=== PATIENT | female | born 1995 | race African-American/Black ===

== ENCOUNTER 2021-08-07 21:20 | Emergency (ER) | payer OTHER ==
[2021-08-07 22:04] VITALS: BP 164/84; PULSE 64; RESP 19; TEMP 98.1
[2021-08-07 22:56] LABS: HCT 40.7 % (34.0-46.0); HGB 13.4 gm/dL (11.4-16.0); MCH 30.1 pg (25.0-35.0); MCHC 32.9 g/dL (31.0-37.0); MCV 91.6 fL (80.0-100.0); Mean Platelet Volume 7.3; Platelet Count 261 k/uL (150-450); RBC 4.45 m/uL (3.80-5.40); RDW 13.4 % (11.5-15.5); WBC 10.4 k/uL (3.8-10.6)
--- NOTE | 2021-08-07 23:33 | US ---
EXAMINATION TYPE: Transabdominal DATE OF EXAM: 08/07/2021 11:21 PM COMPARISON: NONE CLINICAL HISTORY: vaginal bleeding. Patient is 1 week late for her period; patient states she had a p ositive test 2 days ago. Patient states she woke up today with vaginal bleeding and crampin g EXAM PERFORMED: Transvaginal (TV) and Transabdominal (TA) EXAM MEASUREMENTS: GESTATIONAL AGE / DATING Physician Established: Not yet established Dates by LMP: 07/03/21 (5 weeks/0 days) EDC: 04/09/22 Dates by First Scan: No previous this is first scan Dates by Current Scan for: No IUP seen at this time MATERNAL ANATOMY Uterus: 6.0 x 3.4 x 4.8 cm Endometrium: 1.03 cm Right Ovary: 3.1 x 2.2 x 2.0 cm Left Ovary: 2.9 x 2.3 x 2.1 cm Post CDS / Adnexa: wnl Presence of free fluid: no Presence of corpus luteal cyst: no Presence of subchorionic bleed: no No IUP seen Date of LMP: 07/03/21 Beta HcG (if available): Not available at this time IMPRESSION: Uterus is empty. No adnexal mass or free fluid.
[2021-08-07 23:51] LABS: ALT 13 U/L (4-34); AST 24 U/L (14-36); African American GFR (CKD) >90 (>60 ml/min/1.73 sqM); Albumin 4.5 g/dL (3.5-5.0); Alkaline Phosphatase 52 U/L (38-126); Anion Gap 7 mmol/L; Blood Urea Nitrogen 9 mg/dL (7-17); Calcium 9.2 mg/dL (8.4-10.2); Carbon Dioxide 27 mmol/L (22-30); Chloride 104 mmol/L (98-107); Glucose 87 mg/dL (74-99); Non-African American GFR(CKD) >90 (>60 ml/min/1.73 sqM); Sodium 138 mmol/L (137-145); Total Protein 7.6 g/dL (6.3-8.2)
[2021-08-08 00:09] LABS: HCG,Quantitative Serum <2.4 mIU/mL
--- NOTE | 2021-08-08 01:05 | ED ---
General Adult HPI - General Chief complaint: Vaginal Bleeding Stated complaint: Possible Miscarriage Time Seen by Provider: 08/08/21 00:50 Source: patient, RN notes reviewed Mode of arrival: ambulatory - History of Present Illness Initial comments: 26-year-old female presents to the emergency department for evaluation of possible . Patient states her menstrual period was a week late so she took test which was positive. States she then developed vaginal ble eding and lower abdominal cramping consistent with normal menstruation earlier today. States she was then concerned about miscarriage. Patient states she typically has a very regular menstrual cycle. Denies fever, chills, headache, chest pain, shortness of breath, nausea, vomiting, diarrhea, dysuria, or hematuria. LMP 07/03/21. - Related Data Allergies Allergy/AdvReac Type Severity Reaction Status Date / Time No Known Allergies Allergy Verified 08/07/21 22:04 Review of Systems ROS Statement: Those systems with pertinent positive or pertinent negative responses have been documented in the HPI. ROS Other: All systems not noted in ROS Statement are negative. Past Medical History Additional Past Medical History / Comment(s): heart murmur History of Any Multi-Drug Resistant Organisms: None Reported Past Surgical History: No Surgical Hx Reported Past Psychological History: No Psychological Hx Reported Smoking Status: Current every day smoker Past Alcohol Use History: Occasional Past Drug Use History: Marijuana General Exam Limitations: no limitations (Well-developed, well-nourished female in no acute distress. Initial temperature 98.1, pulse 64, respirations 19, blood pressure 164/84, pulse ox 98% on room air.) General appearance: alert, in no apparent distress Respiratory exam: Present: normal lung sounds bilaterally. Absent: respiratory distress, wheezes, rales, rhonchi, stridor Cardiovascular Exam: Present: regular rate, normal rhythm, normal heart sounds. Absent: systolic murmur, diastolic murmur, rubs, gallop, clicks GI/Abdominal exam: Present: soft, normal bowel sounds. Absent: distended, tenderness, guarding, rebound, rigid Back exam: Present: normal inspection. Absent: CVA tenderness (R), CVA tenderness (L) Neurological exam: Present: alert, oriented X3, CN II-XII intact Psychiatric exam: Present: normal affect, normal mood Skin exam: Present: warm, dry, intact, normal color. Absent: rash Course Vital Signs 08/07/21 21:58 Temperature 98.1 F Pulse Rate 64 Respiratory 19 Rate Blood Pressure 164/84 O2 Sat by Pulse 98 Oximetry - Reevaluation(s) Reevaluation #1: 08/08/21 00:35 Discussed results from ED workup. Explained that laboratory studies show an nondetectable hCG level indicating that patient is not . Also discussed results from ultrasound showing no IUP. We did talk about her vaginal bleeding most likely being her normal regular menstrual. She did show me her "positive" test from home, which was not convincingly clearly indicative of . Encouraged to use contraception to prevent . Will be discharged home to follow up as needed. Medical Decision Making - Medical Decision Making 26-year-old female with no significant past medical history, LMP 07/03/2021, presents to the emergency department for evaluation of possible . Upon exam, patient is well-appearing and in no acute distress. Abdomen is soft and nontender. Vital signs are stable. Laboratory studies are unremarkable. HCG is undetectable. Ultrasound shows no IUP. Results were discussed with patient. Vaginal bleeding is most likely the result of normal regular menstrual bleeding. She will be discharged home to follow up with PCP or DAY HABILITATION SPECIALIST as needed. Return parameters were discussed in detail. Patient verbalizes understanding and agrees with this plan. Attending: Cristina. - Lab Data Result diagrams: 08/07/21 22:45 08/07/21 22:45 Lab Results 08/07/21 08/07/21 08/07/21 Range/Units 22:45 22:45 22:45 WBC 10.4 (3.8-10.6) k/uL RBC 4.45 (3.80-5.40) m/uL Hgb 13.4 (11.4-16.0) gm/dL Hct 40.7 (34.0-46.0) % MCV 91.6 (80.0-100.0) fL MCH 30.1 (25.0-35.0) pg MCHC 32.9 (31.0-37.0) g/dL RDW 13.4 (11.5-15.5) % Plt Count 261 (150-450) k/uL MPV 7.3 Sodium 138 (137-145) mmol/L Potassium 4.0 (3.5-5.1) mmol/L Chloride 104 (98-107) mmol/L Carbon Dioxide 27 (22-30) mmol/L Anion Gap 7 mmol/L BUN 9 (7-17) mg/dL Creatinine 0.82 (0.52-1.04) mg/dL Est GFR (CKD-EPI)AfAm >90 (>60 ml/min/1.73 sqM) Est GFR (CKD-EPI)NonAf >90 (>60 ml/min/1.73 sqM) Glucose 87 (74-99) mg/dL Calcium 9.2 (8.4-10.2) mg/dL Total Bilirubin 1.0 (0.2-1.3) mg/dL AST 24 (14-36) U/L ALT 13 (4-34) U/L Alkaline Phosphatase 52 (38-126) U/L Total Protein 7.6 (6.3-8.2) g/dL Albumin 4.5 (3.5-5.0) g/dL HCG, Quant <2.4 mIU/mL Blood Type O Negative Blood Type Recheck No Previous Record Bld Type Recheck Status CABO Indicated Antibody Screen NEGATIVE Spec Expiration Date 08/10/20210 - Radiology Data Radiology results: report reviewed, image reviewed Transabdominal and transvaginal ultrasound was obtained. Report was reviewed in its entirety. Impression per Dr. Crain is empty uterus. No adnexal mass or free fluid. Disposition Clinical Impression: Vaginal bleeding Disposition: HOME SELF-CARE Condition: Stable Instructions (If sedation given, give patient instructions): Normal Exam (ED) Additional Instructions: Follow up with you PCP or OB-Power Plant Engineer for a recheck as needed. Your hCG ( hormone level) was negative. Return to the emergency department with any new, worsening, or concerning symptoms. Is patient prescribed a controlled substance at d/c from ED?: No Referrals: None,Stated [Primary Care Provider] - 1-2 days Time of Disposition: 01:05
== END 2021-08-08 00:55 | disposition home or self-care (01) ==
LOC: EC 21:20
DX: N93.9 Abnormal uterine and vaginal bleeding, unspecified (principal); F17.200 Nicotine dependence, unspecified, uncomplicated
CPT/HCPCS: 36415; 76801; 76817; 80053; 84702; 85027; 86850; 86900; 86901; 99284

== ENCOUNTER 2023-08-02 10:53 | Inpatient (IN) | payer OTHER ==
[2023-08-02 11:43] LABS: Appearance,Urine Clear (Clear); Bilirubin,Urine Negative (Negative); Blood,Urine Moderate (Negative); Color,Urine Light Yellow; Glucose,Urine (UA) Negative (Negative); Ketones,Urine Trace (Negative); Leukocyte Esterase,Urine Negative (Negative); Nitrite,Urine Negative (Negative); Protein,Urine Trace (Negative); RBC,Urine 4 /hpf (0-5); Specific Gravity,Urine 1.008 (1.001-1.035); Squamous Epithelial Cell,Urine 1 /hpf (0-4); Urobilinogen,Urine <2.0 mg/dL (<2.0); WBC,Urine 2 /hpf (0-5)
[2023-08-02 11:51] LABS: Amphetamine Screen,Urine Detected (NotDetected); Barbiturate Screen,Urine Not Detected (NotDetected); Benzodiazepines Screen,Urine Not Detected (NotDetected); Cocaine Screen,Urine Detected (NotDetected); Methadone Screen, Urine Not Detected (NotDetected); Opiate Screen,Urine Not Detected (NotDetected); Oxycodone Screen, Urine Not Detected (NotDetected); Phencyclidine Screen,Urine Not Detected (NotDetected); Tricyclic Antidepressant,Urine Not Detected (NotDetected); Urn Cannabinoid Scrn Detected (NotDetected)
[2023-08-02 12:10] LABS: HCT 29.7 % (34.0-46.0); HGB 9.6 gm/dL (11.4-16.0); MCH 29.7 pg (25.0-35.0); MCHC 32.5 g/dL (31.0-37.0); MCV 91.3 fL (80.0-100.0); Mean Platelet Volume 10.1; Platelet Count 195 k/uL (150-450); RBC 3.25 m/uL (3.80-5.40); RDW 14.7 % (11.5-15.5); WBC 49.4 k/uL (3.8-10.6)
--- NOTE | 2023-08-02 12:29 | US ---
EXAMINATION TYPE: US OB >= 14 wk fetus DATE OF EXAM: 08/02/2023 COMPARISON: None CLINICAL INDICATION: Female, 28 years old with history of minimal care, need full ultrasound please; TECHNIQUE: Transabdominal (TA) GESTATIONAL AGE / DATING Physician Established: (39 weeks/0 days) EDC: 08/09/2023 Dates by LMP: LMP unknown Dates by First Scan: No previous with this Dates by Current Scan: (35 weeks/5 days) EDC: 09/01/2023 SURVEY IUP: Single PLACENTA: Fundal/Posterior - limited due to age and position PREVIA: No Previa REE: 14.0 cm Normal CERVICAL LENGTH (transabdominal: norm > 3.0cm): 3.2 cm(limited visualization transabdominally - no tr ansvaginal per Dr. Schaffer) BIOMETRY PRESENTATION: Vertex LIE: Longitudinal BPD: 8.7 cm 35 weeks / 1 days HC: 32.1 cm 36 weeks / 2 days AC: 30.4 cm 34 weeks / 3 days FL: 7.1 cm 36 weeks / 4 days ESTIMATED WEIGHT IN GRAMS: 2614 grams ESTIMATED WEIGHT IN LBS/OZ: 5 lbs. 12 oz. WEIGHT PERCENTAGE BASED ON ESTABLISHED DATES: 3% HC/AC: 1.06 Normal FL/AC: 23% Normal HEART RATE: 134 bpm RHYTHM: Normal IMPRESSION: Single live intrauterine gestation ultrasound age 35 weeks 5 days.
[2023-08-02] MEDS: LACTATED RINGERS 1,000 ML IV SCH ×2 (13:30→19:14)
--- NOTE | 2023-08-02 13:46 | P.HPOB ---
History of Present Illness H&P Date: 08/02/23 Chief Complaint: Cramping, contractions Ms. Calhoun is a 28 year old at 38 weeks and 0 days with stated LMP of 11/27/2022 and EDC of 08/16/2023 by 20 week bedside ultrasound who presents today with a history of painful cramping and contractions. She reports good m ovement and denies leaking of fluid. She had scant in [place], [place]. She has noted a pink tinge to her vaginal discharge. The has been complicated by scant care and illegal drug use. Today, the patient tests positive for cocaine, amphetamines, and marijuana. The patient states that she has had a few care visits and ultrasounds. She recently moved to [place] after her fiancee May 27 from a drug overdose. The patient is Rh negative and states she never received rhogam. She did have her TDap vaccine a few weeks ago, she states. Of note, the patient is noted to have a significantly elevated white count at 49 today. Obstetric history: 1 SAB, 1 VTP work-up [facility] in [place]: Blood type O negative, antibody negative, syphilis was nonreactive (03/29), rubella was equivocal (/), HBsAg negative (/), HIV negative (/). Past medical history: patient denies Past surgical history: patient denies Medications: vitamins Social history: smokes 2 cigarettes daily, uses marijuana, denies any other illicit drug use Past Medical History Additional Past Medical History / Comment(s): heart murmur History of Any Multi-Drug Resistant Organisms: None Reported Past Surgical History: No Surgical Hx Reported Smoking Status: Current every day smoker Medications and Allergies Home Medications Medication Instructions Recorded Confirmed Type Vit No.179/Iron/Folic 1 tab PO DAILY 08/02/23 08/02/23 History [ Tablet] Allergies Allergy/AdvReac Type Severity Reaction Status Date / Time No Known Allergies Allergy Verified 08/02/23 11:07 Exam Intake and Output 08/01/23 08/02/23 08/02/23 22:59 06:59 14:59 Other: Weight 77.927 kg Focused physical exam is performed. This is a healthy-appearing in no apparent distress. Breathing is non-labored. Abdomen is gravid and non-tender. Cervical exam per labor and delivery nurse is 3.5 cm, 80% effacement, -3 station. AROM is undertaken with clear fluid noted. Extremities non-tender and non-edematous. heart tones are 130s/moderate variability/+acceler ations/intermittent late decelerations. Tocometer is graphing contractions every 3-8 minutes. Results Result Diagrams: 08/02/23 11:45 08/02/23 11:45 Abnormal Lab Results - Last 24 Hours (Table) 08/02/23 08/02/23 Range/Units 11:17 11:45 WBC 49.4 H (3.8-10.6) k/uL RBC 3.25 L (3.80-5.40) m/uL Hgb 9.6 L (11.4-16.0) gm/dL Hct 29.7 L (34.0-46.0) % Urine Protein Trace H (Negative) Urine Ketones Trace H (Negative) Urine Blood Moderate H (Negative) Ur Amphetamines Screen Detected H (NotDetected) Urine Cocaine Screen Detected H (NotDetected) U Marijuana (THC) Screen Detected H (NotDetected) Assessment and Plan Assessment: 28 year old at 38 weeks and 0 days gestation by 20 week bedside ultrasound with scant care and history of illicit drug use in early labor with intermittent late decelerations Plan: 1. Early labor. 2. Intermittent late decelerations. Will proceed with augmentation of labor with amniotomy and pitocin. 3. Leukocytosis of 49. Afebrile, VSS. Will start IV amp/gent for presumed chorioamnionitis. 4. Pain control. Epidural prn. 5. Monitoring. Continuous EFM, tocometer. Close monitoring of patient. 6. Diet NPO Time with Patient: Greater than 30 (45 minutes)
[2023-08-02 13:48] LABS: Band Neutrophils % 13 %; Lymphocytes # (M) 1.98 k/uL (1.0-4.8); Metamyelocytes # (M) 0.99 k/uL (0); Metamyelocytes % 2 %; Monocytes # (M) 3.95 k/uL (0-1.0); Neutrophils % (M) 74 %; Nucleated Red Blood Cells 0 /100 WBC (0-0); Total Cells Counted 200
[2023-08-02 13:49] LABS: RBC Morphology Normal; Toxic Granulation Present
[2023-08-02] MEDS ORDERED: miSOPROStoL 200 MCG TAB PO PRN ×2 (14:00→16:56)
[2023-08-02] MEDS ORDERED: TERBUTALINE 1 MG/ML VIAL SQ PRN (14:00)
[2023-08-02] MEDS ORDERED: TRANEXAMIC 1,000 MG/100ML-NACL 1,000 MG in EMPTY BAG 1 BAG IV PRN ×2 (14:00→16:56)
[2023-08-02] MEDS ORDERED: CARBOPROST TROMETHAMINE 250 MCG/ML 1 ML AMP IM PRN ×2 (14:00→16:56)
[2023-08-02] MEDS ORDERED: LIDOCAINE 0.5% (PF) 5 MG/ML (50 ML SDV) SQ PRN (14:00)
[2023-08-02] MEDS ORDERED: METHYLERGONOVINE 0.2 MG/ML 1 ML AMP IM PRN ×2 (14:00→16:56)
[2023-08-02] MEDS ORDERED: OXYTOCIN 10 UNIT/ML 1 ML VIAL IM PRN ×2 (14:00→16:56)
[2023-08-02] MEDS: AMPICILLIN 2,000 MG in SODIUM CHLORIDE 0.9% 100 ML IVPB SCH (14:26)
[2023-08-02] MEDS: OXYTOCIN 30 UNITS/500 ML NS 30 UNIT in SALINE 1 500ML.BAG IV SCH (14:56)
[2023-08-02] MEDS: GENTAMICIN 300 MG in SODIUM CHLORIDE 0.9% 100 ML IVPB SCH (15:34)
[2023-08-02] MEDS: NALBUPHINE 10 MG/ML (10 ML MDV) IV PRN (16:10)
[2023-08-02] MEDS: CITRIC ACID-SODIUM CITRATE 15 ML CUP PO ONE (17:05)
[2023-08-02] MEDS ORDERED: MORPHINE SULFATE (PF) 0.3 MG/0.3 ML SYR ONE (17:11)
[2023-08-02] MEDS ORDERED: ONDANSETRON 4 MG/2 ML VIAL ONE (17:11)
[2023-08-02] MEDS ORDERED: KETOROLAC 15 MG/ML 1 ML VIAL ONE (17:11)
[2023-08-02] MEDS ORDERED: OXYTOCIN 30 UNITS/500 ML NS BAG IV ONE (17:11)
[2023-08-02] MEDS ORDERED: ePHEDrine 50 MG/ML 1 ML VIAL ONE (17:11)
[2023-08-02 18:06] LABS: Hepatitis B Surface Antigen Nonreactive (Nonreactive)
[2023-08-02] MEDS ORDERED: METOCLOPRAMIDE 5 MG/ML 2 ML VIAL IVP PRN (19:01)
[2023-08-02] MEDS ORDERED: diphenhydrAMINE 50 MG/ML 1 ML VIAL IVP PRN (19:01)
[2023-08-02] MEDS ORDERED: SIMETHICONE 80 MG CHEWABLE PO PRN (19:01)
[2023-08-02] MEDS ORDERED: NALOXONE 0.4 MG/ML 1 ML VIAL IV PRN (19:01)
[2023-08-02] MEDS ORDERED: diphenhydrAMINE 50 MG CAP PO PRN (19:01)
[2023-08-02] MEDS ORDERED: ZOLPIDEM 5 MG TAB PO PRN (19:01)
[2023-08-02] MEDS ORDERED: diphenhydrAMINE 25 MG CAP PO PRN (19:01)
[2023-08-02] MEDS ORDERED: ONDANSETRON 4 MG/2 ML VIAL IVP PRN (19:01)
--- NOTE | 2023-08-02 19:01 | P.OP ---
Date of Procedure: 08/02/23 Preoperative Diagnosis: 1. Term IUP at 38 weeks 2. Chorioamnionitis 3. Scant care 4. Persistent Category II FHTs remote from delivery 5. Thick Meconium Stained Fluid Postoperative Diagnosis: Same Procedure(s) Performed: Primary Lower Transverse Section Implants: None Anesthesia: spinal Surgeon: Rowena Schaffer Estimated Blood Loss (ml): 400 IV fluids (ml): 1,000 Urine output (ml): 200 (clear yellow) Pathology: other (placenta) Condition: stable Disposition: floor Indications for Procedure: Ms. Calhoun is a 28 year old at 38 weeks gestation by 20 week bedside ultrasound and very scant care who presented to labor and delivery with complaints of contractions. While in triage the fetus had several late decelerations. The patient was also noted to have a leukocytosis of 49. Chorioamnionitis was diagnosed, the patient was admitted for labor augmentation with amniotomy and Pitocin per protocol. IV ampicillin and gentamicin were given for chorioamnionitis treatment. The patient progressed to 7 cm, however the fetus was having persistent category 2 heart tones. Category II FHT were managed following the algorithm including initiation of position changes and fluid boluses. With the persistent presence of recurrent and deep late decelerations, a patient-centered huddle was held and the need for an expedited deliver was discussed with the patient. It is our clinical recommendation to proceed with the delivery and after questions were answered to the patient agrees to proceed with the recommended plan. The risks, benefits, and alternatives to section were discussed with the patient including risk of bleeding, infection, damage to surrounding structures including bladder/bowels/ureters, and post-operative VTE. The patient understands these risks and desires to proceed with section. Operative Findings: Normal appearing uterus, bilateral fallopian tubes, and ovaries. Thick meconium noted. Fetus was cephalic in right occiput posterior position. Viable male infant delivered, weighing 6 pounds and 1 ounce (2755 grams), with Apgars of 8/9. Description of Procedure: The patient was taken to the operating room where spinal anesthesia was found to be adequate. Two grams Ancef were given for infection prophylaxis. Vaginal prep was performed prior to the surgery. She was prepared and draped in the dorsal supine position with a leftward tilt. A Pfannenstiel skin incision was made with the scalpel. The incision was carried down to the fascia with a bovie. The fascia was incised and extended laterally with Malik scissors. The superior aspect of the fascia was grasped with Abdon clamps. The underlying rectus muscle was dissected off sharply with Malik scissors. In a similar fashion, the inferior aspect of the fascia was elevated with Abdon clamps and the rectus muscle and pyramidalis were dissected off. Excellent hemostasis was achieved with the bovie. The rectus muscle was in the midline down to the level of the pubic symphysis. Pre-peritoneal fatty tissue was bluntly dissected to expose the peritoneum. The peritoneum was found to be free of adherent bowel and entered sharply with Malik scissors. The peritoneal incision was extended superiorly and inferiorly to the bladder reflection with good visualization of the bladder. The bladder blade was inserted and vesicouterine peritoneum was identified. Intraabdominal survey revealed scant, clear peritoneal fluid and the thinned-out lower uterine segment. The vesicouterine peritoneum was opened with scissors and the bladder flap was developed. The bladder blade was repositioned to keep the bladder out of the operative field. The lower uterine segment was incised with a scalpel. The amniotic sac was ruptured with an Allis clamp and thick meconium was noted. The uterine incision was extended bluntly with lateral and upward traction. The fetus was in right occiput posterior position. The head was elevated out of the pelvis with special attention paid to avoid using the uterine incision as a fulcrum. Gentle fundal pressure was applied once the head was brought into the incision. The was delivered with no difficulty. The mouth and nose were suctioned with a bulb. The cord was clamped and cut. Infant was noted to be spontaneously crying. The infant was handed off to the workers compensation claims examiner. IV oxytocin was initiated to facilitate uterine contractions. The placenta was delivered intact with manual massage of uterine fundus. The uterus was then exteriorized and the inside of the uterus was gently wiped with a lap sponge to assure complete removal of placental membranes. The uterine incision was closed with a 0-Polysorb suture in a running locked fashion. A second im bricating layer of 0-Polysorb was placed along the incision. The ovaries and tubes were found to be normal. Additional figure of eight sutures were placed along the hysterotomy to facilitate hemostasis. The uterus, tubes, and ovaries were then gently returned to the abdominal cavity. The blood clots and fluid were wiped out of the abdomen and pelvis with moist laparotomy sponges. The pelvis was copiously suction irrigated.The uterine incision was reinspected and excellent hemostasis was noted. The fascial layer was closed with a 0-Vicryl suture. The subcutaneous tissue was reapproximated with 2-0 Plain Gut. The skin was closed with 4-0 Monocryl in a subcuticular fashion. The patient tolerated the procedure well. All the counts were correct times two. The patient was taken to the recovery room in a stable condition.
[2023-08-02 19:27] LABS: HIV 2 AB Non-Reactive (Non-Reactive); HIV AB P24 Non-Reactive (Non-Reactive); HIV P24 AG Non-Reactive (Non-Reactive)
[2023-08-02] MEDS: diphenhydrAMINE 50 MG/ML 1 ML VIAL IVP PRN (19:30)
[2023-08-02] MEDS: ACETAMINOPHEN TAB 500 MG TAB PO SCH (21:57)
[2023-08-02] MEDS: SENNOSIDES-DOCUSATE SODIUM 1 EACH TAB PO SCH (21:58)
[2023-08-03] MEDS: KETOROLAC 15 MG/ML 1 ML VIAL IVP SCH (01:01)
[2023-08-03] MEDS: IBUPROFEN 600 MG TAB PO SCH (02:39)
[2023-08-03] MEDS: CLINDAMYCIN 900 MG in DEXTROSE 5% IN WATER 50 ML IVPB ONE (02:40)
[2023-08-03] MEDS: LACTATED RINGERS 1,000 ML IV SCH (04:35)
[2023-08-03] MEDS: Rhogam IMMUNE GLOBULIN 1,500 UNIT/1 ML IM ONE (05:53)
[2023-08-03 06:09] LABS: HCT 22.8 % (34.0-46.0); MCH 30.2 pg (25.0-35.0); MCHC 33.3 g/dL (31.0-37.0); MCV 90.7 fL (80.0-100.0); Mean Platelet Volume 10.4; Platelet Count 179 k/uL (150-450); RBC 2.51 m/uL (3.80-5.40); RDW 14.9 % (11.5-15.5); WBC 30.7 k/uL (3.8-10.6)
[2023-08-03 06:48] LABS: HGB 7.6 gm/dL (11.4-16.0)
--- NOTE | 2023-08-03 07:04 | P.PNOBGPC ---
Subjective - Subjective Principal diagnosis: s/p primary section Interval history: The patient is doing well this morning and had no acute events overnight. She has no complaints this morning. Awaiting void after nunez was removed. has not yet passed flatus. She reports minimal lochia, ambulating, and eating/drinking without nausea or vomiting. She is her without difficulty. She denies chest pain, shortness of breathing, fevers, or chills overnight. She denies pain or swelling in the legs. Patient reports: Reports appetite normal, Reports voiding normally, Reports pain well controlled, Reports ambulating normally : in NICU, other ([facility]) Objective - Vital Signs Latest vital signs: Vital Signs Temp Pulse Resp BP Pulse Ox 08/03/23 04:00 97.8 F 70 16 100/59 98 08/03/23 00:00 71 18 102/61 98 08/02/23 20:07 65 18 129/60 100 08/02/23 19:52 63 16 135/67 100 08/02/23 19:37 66 18 137/81 100 08/02/23 19:22 67 18 134/65 100 08/02/23 19:07 57 L 18 119/68 100 08/02/23 18:52 62 17 127/64 100 08/02/23 18:37 59 L 17 127/75 100 08/02/23 18:22 70 17 121/72 100 08/02/23 18:07 97.4 F L 63 17 111/56 100 08/02/23 16:26 97.7 F 94 17 115/64 100 08/02/23 13:29 97.7 F 94 17 115/64 100 Intake and Output 08/02/23 08/03/23 08/03/23 22:59 06:59 14:59 Intake Total 1606.333 400 Output Total 850 1600 Balance 756.333 -1200 Intake: IV 1000 Intake, IV Titration 6.333 Amount Oxytocin 30 Units/500 ml 6.333 Ns 30 unit In Saline 1 500ml.bag @ Per Protocol IV .Q0M [facility] Rx#:[id number] Oral 600 400 Output: Urine 450 1600 Uretheral (Nunez) 1600 Estimated Blood Loss 400 Other: Voiding Method Indwelling Catheter - Exam Extremities: Present: normal Abdomen: Present: normal appearance, soft Incision: Present: normal, dry, dressed Uterus: Present: normal, firm - Labs Labs: Abnormal Lab Results - Last 24 Hours (Table) 08/02/23 08/02/23 08/02/23 Range/Units 11:17 11:45 11:45 WBC 49.4 H (3.8-10.6) k/uL RBC 3.25 L (3.80-5.40) m/uL Hgb 9.6 L (11.4-16.0) gm/dL Hct 29.7 L (34.0-46.0) % Neutrophils # (Manual) 42.90 H (1.3-7.7) k/uL Monocytes # (Manual) 3.95 H (0-1.0) k/uL Metamyelocytes # (Man) 0.99 H (0) k/uL Urine Protein Trace H (Negative) Urine Ketones Trace H (Negative) Urine Blood Moderate H (Negative) Ur Amphetamines Screen Detected H (NotDetected) Urine Cocaine Screen Detected H (NotDetected) U Marijuana (THC) Screen Detected H (NotDetected) Rubella IgG Antibody 21.70 H (0.00-9.00) IU/mL 08/03/23 Range/Units 05:34 WBC 30.7 H (3.8-10.6) k/uL RBC 2.51 L (3.80-5.40) m/uL Hgb 7.6 L D (11.4-16.0) gm/dL Hct 22.8 L (34.0-46.0) % Neutrophils # (Manual) (1.3-7.7) k/uL Monocytes # (Manual) (0-1.0) k/uL Metamyelocytes # (Man) (0) k/uL Urine Protein (Negative) Urine Ketones (Negative) Urine Blood (Negative) Ur Amphetamines Screen (NotDetected) Urine Cocaine Screen (NotDetected) U Marijuana (THC) Screen (NotDetected) Rubella IgG Antibody (0.00-9.00) IU/mL Assessment and Plan Assessment: 28 year old POD#1 s/p primary section 2/2 non-reassuring heart tones remote from delivery Plan: 1. Post-operative. Pt doing well, awaiting void s/p nunez. Not yet passing flatus. Continue to monitor. Ambulation encouraged. 2. Viable male . [facility], in nursery. 3. Chorioamnionitis. s/p IV Amp/Gent in labor, s/p 1 dose IV Clidamycin. WBC 49 yesterday > 30 this AM > repeat CBC tomorrow. Afebrile overnight, VSS. Dispo: Continue inpatient management. Anticipate discharge on POD#4 due to in the nursery for [facility].
[2023-08-03 07:29] LABS: Band Neutrophils % 9 %; Lymphocytes # (M) 2.46 k/uL (1.0-4.8); Monocytes # (M) 1.23 k/uL (0-1.0); Neutrophils % (M) 79 %; Nucleated Red Blood Cells 0 /100 WBC (0-0); Total Cells Counted 100
[2023-08-03 07:30] LABS: RBC Morphology Normal
--- NOTE | 2023-08-03 20:04 | P.PN ---
Progress Note - Text 08/03/23 834AM 28-year-old female status post with spinal Duramorph. Patient seen and evaluated for postop pain control she has a VAS of 3 with no complaints of nausea vomiting or pruritus.
[2023-08-04 08:25] LABS: Basophils # (A) 0.1 k/uL (0-0.2); Basophils % (A) 0 %; Eosinophils # (A) 0.4 k/uL (0-0.7); Eosinophils % (A) 2 %; HCT 22.4 % (34.0-46.0); HGB 7.2 gm/dL (11.4-16.0); Lymphocytes % (A) 16 %; MCH 29.2 pg (25.0-35.0); MCHC 32.2 g/dL (31.0-37.0); MCV 90.7 fL (80.0-100.0); Monocytes # (A) 0.8 k/uL (0-1.0); Monocytes % (A) 4 %; Neutrophils % (A) 75 %; Platelet Count 175 k/uL (150-450); RBC 2.47 m/uL (3.80-5.40); RDW 14.5 % (11.5-15.5); WBC 18.6 k/uL (3.8-10.6)
--- NOTE | 2023-08-04 09:10 | P.PNOBGPC ---
Subjective - Subjective Principal diagnosis: s/p primary section Interval history: The patient is doing well this morning and had no acute events overnight. She has no complaints this morning. She reports minimal lochia, passing flatus, has had 2 BMs, voiding without difficulty, ambulating, and eating/drinking without nausea or vomiting. She is bottle her infant, infant is in the nursery for [facility]. She denies chest pain, shortness of breathing, fevers, or chills overnight. She denies pain or swelling in the legs. Patient reports: Reports appetite normal, Reports voiding normally, Reports pain well controlled, Reports ambulating normally : doing well Objective - Vital Signs Latest vital signs: Vital Signs Temp Pulse Resp BP Pulse Ox 08/04/23 00:00 97.8 F 72 16 118/73 98 08/03/23 16:00 97.9 F 64 16 102/66 99 08/03/23 12:00 98.4 F 72 16 101/56 97 Intake and Output 08/03/23 08/04/23 08/04/23 22:59 06:59 14:59 Output Total 400 Balance -400 Output: Urine 400 - Exam Extremities: Present: normal Abdomen: Present: normal appearance, soft Incision: Present: normal, dry, intact Uterus: Present: normal, firm - Labs Labs: Abnormal Lab Results - Last 24 Hours (Table) 08/02/23 08/04/23 Range/Units 11:45 07:01 WBC 18.6 H (3.8-10.6) k/uL RBC 2.47 L (3.80-5.40) m/uL Hgb 7.2 L (11.4-16.0) gm/dL Hct 22.4 L (34.0-46.0) % Neutrophils # 14.0 H (1.3-7.7) k/uL Crossmatch See Detail Assessment and Plan Assessment: 28 year old POD#2 s/p primary section 2/2 non-reassuring heart tones remote from delivery Plan: 1. Post-operative. Pt doing well, meeting all post-operative milestones. 2. Viable male infant. [facility], in nursery. Pt desires circumcision once is cleared by peds. 3. Chorioamnionitis. s/p IV Amp/Gent in labor, s/p 1 dose postoperative IV Clidamycin. WBC 49 on admission > 30 > 18 this AM. Afebrile overnight, VSS. 4. Drug use in . UDS positive for cocaine, amphetamines, and marijuana. c/SW. Dispo: Continue inpatient management. Anticipate discharge on POD#4 due to in the nursery for [facility].
[2023-08-04] MEDS: FERROUS SULFATE 325 MG TAB PO SCH (13:22)
[2023-08-04] MEDS: NICOTINE 7MG/24HR PATCH TRANSDERM SCH (18:25)
[2023-08-05 01:34] VITALS: RESP 16
--- NOTE | 2023-08-05 08:17 | P.PNOBGPC ---
Subjective - Subjective Principal diagnosis: Status post section, chorioamnionitis Interval history: Interval decrease in white blood cell count and remains afebrile. Patient reports: Reports appetite normal, Reports voiding normally, Reports pain well controlled, Reports ambulating normally, Denies dizzy ambulation : other (The nursery for antibiotics) Objective - Vital Signs Latest vital signs: Vital Signs Temp Pulse Resp BP Pulse Ox 08/05/23 07:40 98.6 F 66 16 114/72 98 08/05/23 00:00 98.6 F 68 16 114/69 99 08/04/23 16:00 98.6 F 67 18 123/72 100 Intake and Output 08/04/23 08/05/23 08/05/23 22:59 06:59 14:59 Intake Total 400 Balance 400 Intake: Oral 400 Other: # Voids 2 2 - Exam Extremities: Present: normal. Absent: tenderness, edema Abdomen: Present: normal appearance, soft, tenderness Incision: Present: normal, dry, intact Uterus: Present: normal, firm - Labs Labs: Abnormal Lab Results - Last 24 Hours (Table) 08/02/23 08/04/23 Range/Units 11:45 07:01 WBC 18.6 H (3.8-10.6) k/uL RBC 2.47 L (3.80-5.40) m/uL Hgb 7.2 L (11.4-16.0) gm/dL Hct 22.4 L (34.0-46.0) % Neutrophils # 14.0 H (1.3-7.7) k/uL Crossmatch See Detail Assessment and Plan (1) 38 weeks gestation of Current Visit: Yes Status: Acute Code(s): Z3A.38 - 38 WEEKS GESTATION OF SNOMED Code(s): 39674586 (2) Acute blood loss anemia (ABLA) Current Visit: Yes Status: Acute Code(s): D62 - ACUTE POSTHEMORRHAGIC ANEMIA SNOMED Code(s): 613547486 (3) Chorioamnionitis Current Visit: Yes Status: Acute Code(s): O41.1290 - CHORIOAMNIONITIS, UNSP TRIMESTER, NOT APPLICABLE OR UNSP SNOMED Code(s): 98432885 (4) Drug use affecting Current Visit: Yes Status: Acute Code(s): O99.320 - DRUG USE COMPLICATING , UNSPECIFIED TRIMESTER SNOMED Code(s): 13851665 (5) Insufficient care Current Visit: Yes Status: Acute Code(s): O09.30 - SUPRVSN OF PREG W INSUFFICIENT ANTENAT CARE, UNSP TRIMESTER SNOMED Code(s): 7781352580832 (6) Non-reassuring heart tones, delivered, current hospitalization Current Visit: Yes Status: Acute Code(s): O76 - ABNLT IN HEART RATE AND RHYTHM COMP LABOR AND DELIVERY SNOMED Code(s): 396388141 (7) Status post primary low transverse section Current Visit: Yes Status: Acute Code(s): Z98.891 - HISTORY OF UTERINE SCAR FROM PREVIOUS SURGERY SNOMED Code(s): 587457007 (8) Thick meconium stained amniotic fluid Current Visit: Yes Status: Acute Code(s): P96.83 - MECONIUM STAINING SNOMED Code(s): 166545972 Plan: Postop day 3 status post primary low transverse section secondary to category 2 heart tones with chorioamnionitis. Preoperative hemoglobin was 9.6 and is currently 7.2 however she is asymptomatic with no tachycardia. Her white blood cell count has declined from initial of 49,000-18,000. She has been afebrile. Her incision is well-healing. She's been started on iron supplementation. Anticipate discharge home tomorrow.
[2023-08-05] MEDS ORDERED: NICOTINE 7MG/24HR PATCH TRANSDERM SCH (09:00)
[2023-08-05 14:00] LABS: N. gonorrhoeae,PCR Negative (Negative)
[2023-08-05 14:11] LABS: C. trachomatis,PCR Negative (Negative)
--- NOTE | 2023-08-06 09:57 | P.DS ---
Providers Date of admission: 08/02/23 13:09 Expected date of discharge: 08/06/23 Attending physician: Rowena Schaffer MD Primary care physician: Stated None - Discharge Diagnosis(es) (1) 38 weeks gestation of Current Visit: Yes Status: Acute (2) Acute blood loss anemia (ABLA) Current Visit: Yes Status: Acute (3) Chorioamnionitis Current Visit: Yes Status: Acute (4) Drug use affecting Current Visit: Yes Status: Acute (5) Insufficient care Current Visit: Yes Status: Acute (6) Non-reassuring heart tones, delivered, current hospitalization Current Visit: Yes Status: Acute (7) Status post primary low transverse section Current Visit: Yes Status: Acute (8) Thick meconium stained amniotic fluid Current Visit: Yes Status: Acute Hospital Course: This is a 28-year-old 3 now para 10-1 woman who presented at 38 weeks g estation with painful uterine contractions. She had an elevated white blood cell count of 49,000 and category 2 heart tones. She underwent artificial rupture of membranes following admission and thick meconium-stained fluid was noted. Maternal screening was positive for cocaine, amphetamines and marijuana. She was started on IV antibiotics for chorioamnionitis. She did progress to 7 cm dilated however had persistent category 2 heart tones that were managed per protocol without improvement. She was therefore taken after appropriate counseling for primary low transverse section. Findings at the time of surgery were remarkable for thick meconium-stained fluid and male weighing 6 lbs. 1 oz. with Apgars of 8 at 1 minute and 9 at 5 minutes please see the operative report for details. Following delivery the infant was admitted to the special care nursery for further evaluation. The patient's postoperative course was unremarkable. By postoperative day #1 patient remained afebrile and her white blood cell count decreased to 30,000 and her hemoglobin was 7.6. She was asymptomatic and her vital signs were stable. By post operative day #2 her white blood cell count was 18,000 and her hemoglobin was 7.2 however the patient was still asymptomatic and afebrile. Her incision was well healing. Patient remained until postoperative day #4 secondary to the being in the nursery. A marriage and family social worker consult was obtained to assist with discharge planning. On the day of discharge her incision was well healing, her vital signs were stable, her lochia was minimal and she was afebrile. She was therefore discharged home with routine instructions for postoperative care and follow-up. Procedures: Primary low transverse section Patient Condition at Discharge: Good Plan - Discharge Summary New Discharge Prescriptions: New Ibuprofen [Motrin] 600 mg PO Q6HR PRN #30 tab PRN Reason: Mild Pain (Scale 1 To 3) Acetaminophen Tab [Tylenol] 650 mg PO Q6H PRN #30 tab PRN Reason: Mild Pain (Scale 1 To 3) Sennosides-Docusate Sodium [Senokot-S] 2 each PO BID@0800,2000 tab Ferrous Sulfate [Iron (65 MG Elemental)] 325 mg PO W/LUNCH #30 tab Ibuprofen [Motrin] 600 mg PO Q6H #30 tab Acetaminophen Tab [Tylenol] 1,000 mg PO Q6H #30 tab No Action Vit No.179/Iron/Folic [ Tablet] 1 tab PO DAILY Discharge Medication List Vit No.179/Iron/Folic [ Tablet] 1 tab PO DAILY 08/02/23 [History] Acetaminophen Tab [Tylenol] 650 mg PO Q6H PRN #30 tab 08/04/23 [Rx] Ibuprofen [Motrin] 600 mg PO Q6HR PRN #30 tab 08/04/23 [Rx] Acetaminophen Tab [Tylenol] 1,000 mg PO Q6H #30 tab 08/06/23 [Rx] Ferrous Sulfate [Iron (65 MG Elemental)] 325 mg PO W/LUNCH #30 tab 08/06/23 [Rx] Ibuprofen [Motrin] 600 mg PO Q6H #30 tab 08/06/23 [Rx] Sennosides-Docusate Sodium [Senokot-S] 2 each PO BID@0800,2000 tab 08/06/23 [Rx] Follow up Appointment(s)/Referral(s): Rowena Schaffer MD [STAFF PHYSICIAN] - 2 Weeks Activity/Diet/Wound Care/Special Instructions: Instructions 1. Do not begin any exercise program for 3 weeks. 2. Do not resume sexual relations for 6 weeks or longer if uncomfortable. 3. You may take tub baths or showers at any time. 4. You may use tampons if desired after 6 weeks. 5. Keep any areas repaired with stitches clean and dry. 6. If you are not nursing, wear a good fitting, supportive bra during the day and limit fluid intake for at least 1 week to prevent breast engorgement. 7. Call the office, , within the next week to make appointment for your 6 week checkup if it has not already been made. 8. Report any of the following occurrences to the doctor promptly: a. Heavy, excessive bleeding b. Chills, fever c. Burning or frequency of urination d. Pain or redness and breasts if nursing e. Increasing pain or swelling of vulva (stitches). In addition to the above instructions, the following additional should be followed: 1. No heavy lifting or straining (exercising) until after 6 week checkup. 2. Keep abdominal incision clean and dry: You may wear a dressing if more comfortable. 3. Make office appointment for 2 weeks after delivery date. Discharge Disposition: HOME SELF-CARE
[2023-08-06 16:04] VITALS: BP 132/86; PULSE 86; TEMP 98.8
== END 2023-08-06 18:57 | disposition home or self-care (01) | DRG 540 ==
LOC: FBPOP 10:53 → 4FBP 13:09
PROVIDERS: ADMIT Obstetrics & Gynecology; ATTEND Obstetrics & Gynecology
PROC: 4A0HXCZ Measurement of Products of Conception, Cardiac Rate, External Approach (ICD-10-PCS; 2023-08-02)
PROC: 3E0234Z Introduction of Serum, Toxoid and Vaccine into Muscle, Percutaneous Approach (ICD-10-PCS; 2023-08-02)
PROC: 10907ZC Drainage of Amniotic Fluid, Therapeutic from Products of Conception, Via Natural or Artificial Opening (ICD-10-PCS; 2023-08-02)
PROC: 3E033VJ Introduction of Other Hormone into Peripheral Vein, Percutaneous Approach (ICD-10-PCS; 2023-08-02)
PROC: 10D00Z1 Extraction of Products of Conception, Low, Open Approach (ICD-10-PCS; principal; 2023-08-02 17:15)
DX: O76 Abnormality in fetal heart rate and rhythm complicating labor and delivery (principal); D62 Acute posthemorrhagic anemia; F17.210 Nicotine dependence, cigarettes, uncomplicated; O32.8XX0 Maternal care for other malpresentation of fetus, not applicable or unspecified; O41.1230 Chorioamnionitis, third trimester, not applicable or unspecified; O77.0 Labor and delivery complicated by meconium in amniotic fluid; O99.02 Anemia complicating childbirth; Z67.41 Type O blood, Rh negative; O99.324 Drug use complicating childbirth; O99.334 Smoking (tobacco) complicating childbirth; Z37.0 Single live birth; Z3A.38 38 weeks gestation of pregnancy; O26.893 Other specified pregnancy related conditions, third trimester; F15.90 Other stimulant use, unspecified, uncomplicated; F12.90 Cannabis use, unspecified, uncomplicated; F14.90 Cocaine use, unspecified, uncomplicated
CPT/HCPCS: 36415; 59025; 76805; 80306; 81001; 82947; 85025; 86762; 86780; 86850; 86900; 86901; 86920; 87081; 87340; 87390; 87491; 87591; 99213